=== PATIENT | female | born 1945 | race Caucasian/White ===

== ENCOUNTER → 2018-07-09 | Outpatient (CLI) | payer MEDICARE, OTHER ==
[~2018-07-09] MED LIST: ADDERALL 20 MG20 MG PO; ALBUTEROL0.63 MG/3 INH; ATENOLOL25 MG PO; CITALOPRAM HBR20 MG PO; FAMOTIDINE20 MG PO; FERROUS SULFAT325 MG PO; FLECTOR1 EACH TOP; FOLIC ACID1 MG PO; FUROSEMIDE40 MG PO; GABAPENTIN300 MG PO; GABAPENTIN600 MG PO; HYDROCHLOROTHIA50 MG PO; HYDROCODON-ACE1 EA12 PO; METFORMIN HCL1000 MG PO; METHYLPHENIDATE20 M1 PO; NAPROXEN500 MG PO; NOVOLIN N100 UNIT/1 SQ; PANTOPRAZOLE SO40 MG PO; PRAVASTATIN SOD80 MG PO; PROAIR HFA INH8.5 GM IH; PROPAFENONE HC325 MG PO; ROPINIROLE HCL0.5 MG PO; ROPINIROLE HCL2 MG PO; VITAMIN B-121000 MCG PO; VITAMIN D35000 UNIT PO
--- NOTE | 2018-07-09 17:53 | Diagnostic Imaging Report ---
Exam: Right ankle 2 views History: Pain Comparison: None. Findings: No fracture or malalignment. Arthropathy of the midfoot. Dorsal and plantar calcaneal enthesophytes. Soft tissue swelling. Impression: No acute osseous abnormality Midfoot arthropathy. Signed by: Dr. Eric Tam M.D. on 07/09/2018 5:50 PM
--- NOTE | 2018-07-09 17:54 | Diagnostic Imaging Report ---
Exam: Right knee 3 views each History: Knee pain Comparison: None. Findings: No fracture or malalignment. Joint spaces preserved. Left quadriceps enthesophyte. Impression: No acute osseous abnormality No arthropathy Signed by: Dr. Eric Tam M.D. on 07/09/2018 5:51 PM
--- NOTE | 2018-07-09 17:57 | Diagnostic Imaging Report ---
Exam: Right and left hand 2 views each History: Pain Comparison: None. Findings: No fracture or malalignment. Multifocal arthrosis of the hand most prominent involving the joints. Additional joints and first carpometacarpal No abnormal soft tissue calcification or soft tissue defect. 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 Signed by: Dr. Eric Tam M.D. on 07/09/2018 5:53 PM
== END ==
LOC: RAD 16:40
DX: M79.642 Pain in left hand (principal); M79.641 Pain in right hand; M25.562 Pain in left knee; M25.561 Pain in right knee; M25.572 Pain in left ankle and joints of left foot; M25.571 Pain in right ankle and joints of right foot

== ENCOUNTER → 2018-12-12 | Day surgery (SDC) | payer MEDICARE, OTHER ==
[~2018-12-12] MED LIST changes: +BETA CAROT25000 UNIT; +FENTANYL CITRATE/PF 100MCG/2 ML INJ ONE; +HYOSCYAMINE SULFATE 0.5 MG/ML INJ ONE; +MIDAZOLAM HCL 2 MG/2 ML VIAL ONE; +PROPOFOL IV EMULSION 10 MG/ML 50 ML VIAL ONE; +PROTONIX40 MG/ML; +VENTOLIN HFA18 GM
--- OUTSIDE RECORDS SUMMARY | 2018-12-12 09:02 | XMS REPORT ---
Author Author [facility] Address Unknown Phone Unavailable Care Team Providers Care Cook Helper Name Role Phone Zaida VELASQUEZ (NON STAFF) ANEL Unavailable Unavailable Darek MCCLAIN Unavailable Unavailable ARNEL PRADO Unavailable Unavailable Problems This patient has no known problems. Allergies, Adverse Reactions, Alerts This patient has no known allergies or adverse reactions. Medications This patient has no known medications. Results Test Description Test Time Test Comments Text Results Atomic Results Result Comments HAND LEFT 2 VIEWS 2018-07-09 17:51:00 [place] [address] Patient Name: YULI PINK MR #: [id number] : 1945 Age/Sex: 73/F Req #: [id number] Adm Physician: Ordered by: ANEL VELASQUEZ Report #: [id number] Location: [facility] Room/Bed: Procedure: [id number] DX/HAND LEFT 2 VIEWS Exam Date: Exam Time: REPORT STATUS: Signed Exam: Right and left hand 2 views each History: Pain Comparison: None. Findings: No fracture or malalignment. Multifocal arthrosis of the hand most prominent involving the joints. Additional joints and first carpometacarpal No abnormal soft tissue calcification or soft tissue defect. 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 Signed by: Dr. Eduin Saenz M.D. on 07/09/2018 5:53 PM Dictated By: EDUIN SAENZ MD 52 Transcribed By: SHARDA on 07/09/181752 COPY TO: ANEL VELASQUEZ (NON STAFF) HAND RIGHT 2 VIEWS 2018-07-09 17:51:00 [place] [address] Patient Name: YULI PINK MR #: [id number] : 1945 Age/Sex: 73/F Req #: [id number] Adm Physician: Ordered by: ANEL VELASQUEZ Report #: [id number] Location: [facility] Room/Bed: Procedure: [id number] DX/HAND RIGHT 2 VIEWS Exam Date: Exam Time: REPORT STATUS: Signed Exam: Right and left hand 2 views each History: Pain Comparison: None. Findings: No fracture or malalignment. Multifocal arthrosis of the hand most prominent involving the joints. Additional joints and first carpometacarpal No abnormal soft tissue calcification or soft tissue defect. 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 Signed by: Dr. Eduin Saenz M.D. on 07/09/2018 5:53 PM Dictated By: EDUIN SAENZ MD 52 Transcribed By: SHARDA on 07/09/181752 COPY TO: ANEL VELASQUEZ (NON STAFF) KNEE THREE VIEWS BILATERAL 2018-07-09 17:50:00 [facility] [address] [place] [address] Patient Name: YULI PINK MR #: [id number] : 1945 Age/Sex: 73/F Req #: [id number] Adm Physician: Ordered by: ANEL VELASQUEZ Report #: [id number] Location: RAD Room/Bed: Procedure: [id number] DX/KNEE THREE VIEWS BILATERAL Exam Date: Exam Time: REPORT STATUS: Signed Exam: Right knee 3 views each History: Knee pain Comparison: None. Findings: No fracture or malalignment. Joint spaces preserved. Left quadriceps enthesophyte. Impression: No acute osseous abnormality No arthropathy Signed by: Dr. Eduin Saenz M.D. on 07/09/2018 5:51 PM Dictated By: EDUIN SAENZ MD 50 Transcribed By: SHARDA on 07/09/181750 COPY TO: ANEL VELASQUEZ (NON STAFF) ANKLE 3 + VIEWS RIGHT 2018-07-09 17:49:00 [place] [address] Patient Name: YULI PINK MR #: [id number] : 1945 Age/Sex: 73/F Req #: [id number] Adm Physician: Ordered by: ANEL VELASQUEZ Report #: [id number] Location: RAD Room/Bed: Procedure: [id number] DX/ANKLE 3 + VIEWS RIGHT Exam Date: Exam Time: REPORT STATUS: Signed Exam: Right ankle 2 views History: Pain Comparison: None. Findings: No fracture or malalignment. Arthropathy of the midfoot. Dorsal and plantar calcaneal enthesophytes. Soft tissue swelling. Impression: No acute osseous abnormality Midfoot arthropathy. Signed by: Dr. Eduin Saenz M.D. on 07/09/2018 5:50 PM Dictated By: EDUIN SAENZ MD 49 Transcribed By: SHARDA on 07/09/181749 COPY TO: ANEL VELASQUEZ (NON STAFF) CHEST SINGLE (PORTABLE) [place] [address] Patient Name: YULI PINK MR #: [id number] : 1945 Age/Sex: 72/F Req #: [id number] Adm Physician: ROSENDO MCCLAIN MD Ordered by: THERESA SOMMER MD Report #: [id number] Location: MED/SURG Room/Bed: [facility] Procedure: [id number] DX/CHEST SINGLE (PORTABLE) Exam Date: 09/03/17 Exam Time: 911 REPORT STATUS: Signed PROCEDURE: CHEST SINGLE (PORTABLE) COMPARISON: 09/01/2017. INDICATIONS: CHF, BIBASILAR ATELECTASIS, PNEUMONIA FINDINGS: Lungs are well-inflated. Interval improvement in patchy opacities relative to 09/01/2017. No new consolidation or effusion. Surgical clips along the left chest wall and axilla. Stable cardiomediastinal contour. No overt pulmonary edema. No acute osseous abnormality. CONCLUSION: Interval improvement in bilateral patchy airspace opacities relative to 09/01/2017. Dictated by: Wilberto Hooks M.D. on 09/03/2017 at 9:39 Electronically approved by: Wilberto Hooks M.D. on 09/03/2017 at 9:39 Dictated By: WILBERTO HOOKS MD 8 Transcribed By: TOÑA on 09/03/17938 COPY TO: THERESA SOMMER MD CHEST 2 VIEWS [place] [address] Patient Name: YULI PINK MR #: [id number] : 1945 Age/Sex: 72/F Req #: [id number] Adm Physician: ROSENDO MCCLAIN MD Ordered by: THERESA SOMMER MD Report #: [id number] Location: MED/SURG Room/Bed: [facility] Procedure: [id number] DX/CHEST 2 VIEWS Exam Date: 09/01/17 Exam Time: 1300 REPORT STATUS: Signed EXAM: XR CHEST 2 VIEWS DATE: 09/01/2017 10:24 AM INDICATION: Short of breath COMPARISON: 08/31/2017 FINDINGS: Lines and Tubes: ET tube, NG tube, right IJ catheter no longer seen. Heart and Mediastinum: No acute findings. Lungs and Pleura: Patchy opacities lung bases. Bones and Soft Tissues: No acute findings. IMPRESSION: 1. Removal support lines/tubes. 2. Patchy opacities could represent atelectasis or pneumonia. Signed by: Dr. Renard Ahumada MD on 09/01/2017 1:22 PM Dictated By: RENARD AHUMADA MD 21 Transcribed By: SHARDA on 09/01/171321 COPY TO: THERESA SOMMER MD CHEST SINGLE (PORTABLE) [place] [address] Patient Name: YULI PINK MR #: [id number] : 1945 Age/Sex: 72/F Req #: [id number] Adm Physician: ROSENDO MCCLAIN MD Ordered by: THERESA SOMMER MD Report #: [id number] Location: MED/SURG Room/Bed: [facility] Procedure: [id number] DX/CHEST SINGLE (PORTABLE) Exam Date: Exam Time: REPORT STATUS: Signed EXAMINATION: CHEST SINGLE (PORTABLE) INDICATION: CHF and right lower lobe pneumonia COMPARISON: 08/30/2017 FINDINGS: TUBES and LINES: Interval placement of endotracheal tube with tip 3 cm above the citlaly. NG tube is stable. Right IJ central line catheter is visualized with tip overlying the region of the mid SVC LUNGS: Lungs are not well inflated. There are bibasilar atelectasis. Confluent opacities in the lung bases with air bronchogram compatible with developing infection. Interlobular septi thickening present. Left lower lobe atelectasis PLEURA: Small left pleural effusion HEART AND MEDIASTINUM: Cardiac size is moderately enlarged. There are atherosclerotic calcifications within the aorta. BONES AND SOFT TISSUES: No acute osseous lesion. Soft tissues are unremarkable. UPPER ABDOMEN: No free air under the diaphragm. IMPRESSION: 1. Worsening interstitial edema. 2. Confluent opacities in the lung bases are compatible with atelectasis versus infection. 3. Cardiomegaly and small left pleural effusion Signed by: Dr. oRcky Giang M.D. on 08/31/2017 4:19 AM Dictated By: ROCKY JUAREZ MD 8 Transcribed By: SHARDA on 08/31/17418 COPY TO: THERESA SOMMER MD CHEST SINGLE (PORTABLE) [place] [address] Patient Name: YULI PINK MR #: [id number] : 1945 Age/Sex: 72/F Req #: [id number] Adm Physician: ROSENDO MCCLAIN MD Ordered by: THERESA SOMMER MD Report #: [id number] Location: ICU Room/Bed: [place] [address] Procedure: [id number] DX/CHEST SINGLE (PORTABLE) Exam Date: 08/30/17 Exam Time: 0400 REPORT STATUS: Signed SINGLE VIEW CHEST, August 30, 2017 Clinical History: Shortness of breath; congestive heart failure. Technique: Single, portable AP view chest. Comparison: None. Findings: See impression. Impression: 1. Interstitial pulmonary edema with cardiomegaly and trace bilateral pleural effusions. 2. Right lower lobe airspace opacity in keeping with any combination of edema, atelectasis and/or pneumonia 3. Nasogastric tube crossing the diaphragm 4. Intact skeleton. Left axillary surgical clips. This report was generated with voice-recognition technology. Errors in neurology technologist can occur. Please interpret accordingly and contact a radiologist if there are any questions regarding the report. Signed by: Dr. Lenny Clayton M.D. on 08/30/2017 7:02 AM Dictated By: LENNY CLAYTON MD 1 Transcribed By: SHARDA on 08/30/17701 COPY TO: THERESA SOMMER MD CHEST SINGLE (PORTABLE) [place] [address] Patient Name: YULI PINK MR #: [id number] : 1945 Age/Sex: 72/F Req #: [id number] Adm Physician: ROSENDO MCCLAIN MD Ordered by: THERESA SOMMER MD Report #: [id number] Location: ICU Room/Bed: ICU [facility] Procedure: [id number] DX/CHEST SINGLE (PORTABLE) Exam Date: 08/28/17 Exam Time: 1840 REPORT STATUS: Signed PROCEDURE: A single AP view of the chest. COMPARISON: [facility], DX, CHEST 2 VIEWS, 08/26/2017, 17:56. INDICATIONS: CHF FINDINGS: Lines/tubes: NG/orogastric tube extending below the diaphragm, however, distal tip not included likely within the gastric body laterally. Lungs: Bilateral suboptimal inflation. Mild prominence of the pulmonary vasculature b ilaterally. Pleura: There is no pleural effusion or pneumothorax. Heart and mediastinum: The cardiac silhouette is probably enlarged. Bones: No acute bony abnormality. Surgical clips in the left axillary region and lower left hemithorax. IMPRESSION: 1. Mild bilateral pulmonary venous congestion. Harper Garcia M.D. Dictated by: Harper Garcia M.D. on 08/28/2017 at 18:58 Electronically approved by: Harper Garcia M.D. on 08/28/2017 at 18:58 Dictated By: MARLEN GARCIA MD, MD 57 Transcribed By: TOÑA on 08/28/171857 COPY TO: THERESA SOMMER MD CHEST 2 VIEWS [place] [address] Patient Name: YULI PINK MR #: [id number] : 1945 Age/Sex: 72/F Req #: [id number] Adm Physician: Ordered by: ROSENDO MCCLAIN MD Report #: [id number] Location: OR Room/Bed: Procedure: [id number] DX/CHEST 2 VIEWS Exam Date: 08/26/17 Exam Time: 1814 REPORT STATUS: Signed PROCEDURE: CHEST 2 VIEWS TECHNIQUE: PA and lateral chest INDICATION: Preoperative evaluation for colon surgery COMPARISON: [facility], DX, CHEST 2 VIEWS, 03/13/2017, 15:11. FINDINGS: Lungs are clear and symmetrically inflated. No pleural effusions. The mediastinal contour and pulmonary vasculature. Surgical clips over the left hemithorax and axilla. Intact skeleton. CONCLUSION: No acute abnormality or interval change from February 2017. Dictated by: Lenny Clayton M.D. on 08/26/2017 at 18:33 Electronically approved by: Lenny Clayton M.D. on 08/26/2017 at 18:33 Dictated By: LENNY CLAYTON MD 32 Transcribed By: TOÑA on 08/26/171832 COPY TO: ROSENDO MCCLAIN MD CT ABDOMEN/PELVIS W [facility] [address] [place] [address] Patient Name: YULI PINK MR #: [id number] : 1945 Age/Sex: 72/F Req #: [id number] Adm Physician: Ordered by: ARNEL PRADO MD Report #: [id number] Location: CT Room/Bed: Procedure: [id number] CT/CT ABDOMEN/PELVIS W Exam Date: 07/29/17 Exam Time: 2004 REPORT STATUS: Signed EXAM: CT Abdomen and Pelvis WITH contrast INDICATION: Colon cancer COMPARISON: None. TECHNIQUE: Abdomen and Pelvis was scanned utilizing a multidetector helical scanner after administration of IV contrast. Coronal and sagittal reformations were obtained. IV CONTRAST: 100 mL Isovue- 370 COMPLICATIONS: None RADIATION DOSE: Total DLP:478 mGy*cm Estimated effective dose: (DLP x 0.015 x size factor) mSv CTDIvol has been reviewed. It is below the limits set by the Radiation Protocol Committee (RPC). FINDINGS: Abdomen: Lung Bases: Minimal atelectasis lung bases. Solid Organs: Mild decreased attenuation of the liver suggesting steatosis. Otherwise, liver, adrenals, kidneys, spleen, and pancreas are unremarkable except for single splenic granuloma. Upper GI Tract: Small hiatal hernia present. No small bowel obstructive changes. Vascularity: Moderate aortic vascular calcifications with no aneurysm. Lymph Nodes: 15 mm moshe hepatic lymph node coronal image 62. 10 mm lymph node and 8 mm lymph node coronal images 64 and 63 right lower quadrant mesentery. Several smaller lymph nodes and mild stranding present about the cecum and proximal ascending colon. 2 adjacent 7 mm lymph nodes right iliac chain axial image 47. Other: Postsurgical changes ventral abdominal wall. Small fat- containing umbilical hernia. Pelvis: Bladder: Unremarkable. Other: Uterus absent. Colon: Moderate colonic stool and lack of enteric contrast limits evaluation. Diverticulosis sigmoid colon. Mild stranding about cecum and ascending colon. No fluid collection. Bones: Advanced degenerative changes left hip with significant joint space loss and large subchondral cyst. L5-S1 degenerative disc changes. IMPRESSION: 1. Portable hepatic, right lower quadrant, and right iliac chain adenopathy. Given history, findings concerning for metastatic disease. PET/CT could be obtained for further evaluation. 2. Mild hepatic steatosis. 3. Moderate colonic stool. Diverticulosis. Signed by: Dr. Renard Ahumada MD on 07/30/2017 8:02 AM Dictated By: RENARD AHUMADA MD 1 Transcribed By: SHARDA on 07/30/17801 COPY TO: ARNEL PRADO MD
[2018-12-12 14:52] LABS: WBC,FECAL (FECAL LACTOFERRIN) POSITIVE (NEGATIVE)
[2018-12-12 15:00] VITALS: BP 103/53
--- NOTE | 2018-12-12 21:47 | Operative Report ---
DATE OF PROCEDURE: 12/12/2018 SURGEON: Haja Cao MD REFERRING PHYSICIAN: Leonid Sharp MD PROCEDURES: Esophagogastroduodenoscopy with biopsies, and colonoscopy with polypectomy and biopsies. INDICATION FOR EGD: Heartburn and indigestion. INDICATIONS FOR COLONOSCOPY: Surveillance colonoscopy, personal history of colon cancer, history of diarrhea. MEDICATIONS: The patient was done under MAC, please see anesthesiologist's note. PROCEDURE IN DETAIL: With the patient in left lateral decubitus position, flexible fiberoptic Olympus gastroscope was introduced into the esophagus under direct visualization without any difficulty. There was some patchy erythema noted in the distal esophagus. The scope was then advanced with ease into the stomach, mucosa overlying the antrum and the body revealed some patchy erythema and low-grade to moderate edema and biopsies were obtained and sent to stain for H pylori. The pylorus was of normal contour and shape, was intubated with ease and the scope was advanced all the way to the second portion of the duodenum. The scope was then withdrawn slowly and mucosa overlying the proximal second portion and duodenal bulb grossly appeared to be within normal limits. Biopsies were obtained to rule out sprue considering the patient's history of chronic diarrhea. The scope was then withdrawn back into the stomach and retroflexed and the mucosa overlying the fundus and cardia appeared to be within normal limits. The scope was then straightened out, it was subsequently withdrawn. The patient tolerated the procedure well. IMPRESSION: 1. Distal esophagitis. 2. Gastritis, biopsied. Biopsies sent to stain for H pylori. 3. Rule out sprue. PLAN: Follow up histology. Continue Protonix 40 mg one p.o. q.a.m. a.c. The patient was then turned around and after adequate lubrication of the anal canal, flexible fiberoptic Olympus colonoscope was inserted into the rectum with ease and advanced all the way to the ileocolic anastomosis. Anastomosis was patent. There was no evidence of recurrence. The scope was then withdrawn slowly and the mucosa overlying the left colon revealed some patchy mild inflammatory changes and multiple random biopsies were obtained. One polyp was hot biopsied from the descending colon. Diverticular disease was noted to involve the descending and the sigmoid colon. One polyp was snared and two polyps were hot biopsied in the sigmoid colon. The mucosa just proximal to the dentate line appeared somewhat raised and biopsies were obtained. The scope was then retroflexed into the distal rectum and small internal hemorrhoids were noted, none of which was actively bleeding. The scope was then straightened out and was subsequently withdrawn after securing an adequate stool specimen that was sent for the appropriate stool studies. The patient tolerated the procedure well. IMPRESSION: 1. Ileocolic anastomosis, intact. No evidence of recurrence. 2. Diverticulosis. 3. Mild patchy colitis. 4. Descending colon polyp, hot biopsied. 5. Sigmoid colon polyps x3, 1 snared and 2 hot biopsied. 6. Distal rectal mucosa just proximal to the dentate line is somewhat raised and biopsies were obtained. 7. Internal hemorrhoids, none actively bleeding. PLAN: Follow up histology. Follow up stool studies. Initiate Bentyl 10 mg one p.o. t.i.d. VSL #3 one p.o. daily. The patient might need a followup colonoscopy in 2 to 3 years. Haja Cao MD [facility] /[id number] cc: Leonid Sharp MD
[2018-12-13 15:18] LABS: C DIFFICILE TOXIN A&B AMP PROB NEGATIVE (NEGATIVE)
== END | disposition home or self-care (01) ==
LOC: OR 08:59
PROVIDERS: ATTEND Internal Medicine Gastroenterology
DX: K29.70 Gastritis, unspecified, without bleeding (principal); Z85.038 Personal history of other malignant neoplasm of large intestine; K63.5 Polyp of colon; K62.1 Rectal polyp; K52.9 Noninfective gastroenteritis and colitis, unspecified; K20.9 Esophagitis, unspecified; K29.80 Duodenitis without bleeding; Z98.0 Intestinal bypass and anastomosis status; K57.30 Diverticulosis of large intestine without perforation or abscess without bleeding; K21.9 Gastro-esophageal reflux disease without esophagitis; K64.8 Other hemorrhoids; G62.9 Polyneuropathy, unspecified; G25.81 Restless legs syndrome; J45.909 Unspecified asthma, uncomplicated; G47.33 Obstructive sleep apnea (adult) (pediatric); I10 Essential (primary) hypertension; E11.9 Type 2 diabetes mellitus without complications; M81.0 Age-related osteoporosis without current pathological fracture; F32.9 Major depressive disorder, single episode, unspecified; Z91.048 Other nonmedicinal substance allergy status; Z01.810 Encounter for preprocedural cardiovascular examination; Z79.84 Long term (current) use of oral hypoglycemic drugs; Z85.3 Personal history of malignant neoplasm of breast
CPT/HCPCS: 36415; 43239; 45380; 45384; 45385; 82948; 83630; 83993; 87045; 87177; 87328; 87493; 88305; 88312; 93005; J1980; J2250; J2704

== ENCOUNTER 2020-02-17 06:41 | Observation (INO) | payer MEDICARE, OTHER ==
[2020-02-12 14:54] LABS: BASOPHILS # (AUTO) 0.1 (0.0-0.1); BASOPHILS % 0.6 % (0.0-1.0); EOSINOPHILS # (AUTO) 0.3 (0.0-0.4); EOSINOPHILS % 3.3 % (0.0-6.0); HEMATOCRIT 46.6 % (34.2-44.1); HEMOGLOBIN 14.3 g/dL (12.0-16.0); LYMPHOCYTES # (AUTO) 1.4 (1.0-3.2); LYMPHOCYTES % 16.8 % (18.0-39.1); MEAN CORPUSCULAR HEMOGLOBIN 30.1 pg (28-32); MEAN CORPUSCULAR HGB CONC 30.7 g/dL (31-35); MEAN CORPUSCULAR VOLUME 98.1 fL (81-99); MONOCYTES # (AUTO) 0.6 (0.2-0.8); MONOCYTES % 7.6 % (4.4-11.3); NEUTROPHILS % 71.5 % (38.7-80.0); PLATELET COUNT 258 x10e3/uL (140-360); RED BLOOD COUNT 4.75 x10e6/uL (3.6-5.1); RED CELL DISTRIBUTION WIDTH 13.6 % (11.7-14.4)
[2020-02-12 15:14] LABS: ANION GAP 15.1 mmol/L (8-16); CREATININE, SERUM 1.04 mg/dL (0.57-1.11); POTASSIUM 4.1 mmol/L (3.5-5.1)
--- NOTE | 2020-02-12 15:21 | Diagnostic Imaging Report ---
EXAMINATION: CHEST 2 VIEWS INDICATION: Pre-operative COMPARISON: Chest radiograph 09/01/2017 FINDINGS: LINES/TUBES:EKG leads overlie the chest. LUNGS:The lungs are mildly hyperinflated. No focal consolidation or pulmonary edema. Bibasilar subsegmental atelectasis. Ovoid density projecting over the left lateral lung base appears unchanged from 2017. PLEURA:No pleural effusion or pneumothorax. MEDIASTINUM:The cardiomediastinal silhouette appears normal in size and shape. Cardiomediastinal silhouette is stably enlarged. Bill chest BONES/SOFT TISSUES:No acute osseous injury. ABDOMEN:No free air under the diaphragm. IMPRESSION: Bibasilar subsegmental atelectasis. No focal pneumonia or pulmonary edema. Signed by: Ibeth Power MD on 02/12/2020 3:17 PM
[~2020-02-17] VITALS: Ht 160 cm; Wt 68.0 kg
[~2020-02-17 06:41] MED LIST changes: +ARMODAFINIL150 MG PO; +DICYCLOMINE HCL10 MG PO; -FENTANYL CITRATE/PF 100MCG/2 ML INJ ONE; -HYOSCYAMINE SULFATE 0.5 MG/ML INJ ONE; -MIDAZOLAM HCL 2 MG/2 ML VIAL ONE; +NOVOLIN N100 UNIT/4 SC; -PROPOFOL IV EMULSION 10 MG/ML 50 ML VIAL ONE; +PROTONIX20 MG PO
[2020-02-17] MEDS ORDERED: BUPIVACAINE 0.25% 30ML SDV INJ ONE (08:29)
[2020-02-17] MEDS ORDERED: HYDROMORPHONE 1MG/1ML INJ IV PRN (12:00)
[2020-02-17] MEDS ORDERED: ONDANSETRON HCL INJ 2MG/ML 2ML 2 MG/ML VIAL IV PRN (12:00)
[2020-02-17] MEDS ORDERED: ALBUTEROL SULFATE HFA 8GM INHALATION AEROSOL INH PRN (12:00)
[2020-02-17] MEDS ORDERED: HYDROCODONE/APAP 7.5MG-325MG 1 EA TAB PO PRN (12:00)
[2020-02-17] MEDS: INSULIN REGULAR, HUMAN 100 UNIT/1 ML 3ML VIAL SQ SCH ×2 (12:00→18:00)
--- NOTE | 2020-02-17 12:13 | Operative Report ---
DATE OF PROCEDURE: 02/17/2020 SURGEON: Yunier Pacheco MD PREOPERATIVE DIAGNOSIS: Incarcerated ventral hernia. POSTOPERATIVE DIAGNOSIS: Incarcerated ventral hernia. OPERATIONS PERFORMED: Exploratory laparotomy, lysis of adhesions, and repair of ventral hernia with mesh. BLACKJACK DEALER: CAMI Crow. ANESTHESIA: General. COMPLICATIONS: None. ESTIMATED BLOOD LOSS: Minimal. DESCRIPTION OF PROCEDURE: With the patient lying in bed in the supine position under good general endotracheal anesthesia, the abdomen was prepped with Betadine solution and draped in the usual manner. A midline periumbilical incision was made, carried down to the subcutaneous tissue and immediately, a hernia sac was encountered. The hernia sac was then slowly and carefully from all the surrounding structures. The umbilicus was then from the midline. The patient had a previous TRAM flap with a lipectomy, so there was lot of adhesions all throughout the abdominal wall. Once we freed up the fascia all the way around, the hernia sac was then slowly and carefully opened, contained within the hernia sac was a tightly adherent small bowel loops, which was slowly and carefully from each other and then we had to carry out intra-abdominal lysis of adhesions to be able to free up the small bowel from the undersurface of the fascia all the way around. This was slowly and carefully done, making sure that we did not injure the bowel and this took probably about an hour worth of work to be able to separate all the bowel and reduced it back to the intra-abdominal cavity. After this was done, hemostasis was ascertained. The fascial defect was then closed transversely using interrupted sutures of 0 Ethibond and was further oversewn with a running suture of #1 Vicryl. After this was done, Ultrapro mesh was then placed over the entire area and sutured all the way around with interrupted sutures of 0 Ethibond and 0 Vicryl. This gave us a satisfactory repair without any tension. The whole area was thoroughly irrigated and perfect hemostasis was ascertained. All layers were infiltrated on the way out with solution of 0.25% Marcaine. The umbilicus was then tacked back down to the midline fascia with 3-0 Vicryl. The subcutaneous tissue was approximated with 3-0 Vicryl and the skin was closed with clips. A dressing was applied. The sponge, lap, and needle count was correct. The patient tolerated the procedure well and returned to the recovery room in stable condition. MD RAKESH Prasad/DENA /[id number]
[2020-02-17] MEDS ORDERED: PROPAFENONE HCL SR 325 MG CAPCR PO SCH (14:00)
[2020-02-17] MEDS: FUROSEMIDE 40 MG TAB PO SCH (17:00)
[2020-02-17] MEDS ORDERED: SODIUM CHLORIDE 0.9% 1000ML 1,000 ML ONE (17:19)
[2020-02-17] MEDS ORDERED: CEFAZOLIN SOD 1 GM/NS 50ML 50 ML IV ONE (17:19)
[2020-02-17] MEDS: CEFAZOLIN SOD 1 GM/NS 50ML 50 ML IV SCH (17:29)
[2020-02-17] MEDS: SODIUM CHLORIDE 0.9% 1000ML 1,000 ML IV SCH ×2 (17:32→22:00)
[2020-02-17] MEDS: PANTOPRAZOLE 40 MG 10ML VIAL IV SCH (17:32)
[2020-02-17] MEDS ORDERED: PANTOPRAZOLE 40 MG 10ML VIAL ONE (17:37)
--- NOTE | 2020-02-17 18:15 | NUR ---
RECD FROM PACU S/P HERNIA REPAIR. DAUGHTER AT BEDSIDE. DRESSING TO ABD CDI. ABD BINDER IN PLACE. PATIENT SITTING UP IN BED EATING CL. LIQUID DIET FROM PACU. DENIES DISCOMFORT AT THIS TIME
[2020-02-17] MEDS ORDERED: DEXAMETHASONE SOD PHOS INJ 4 MG/ML VIAL ONE (18:32)
[2020-02-17] MEDS ORDERED: ACETAMINOPHEN 1000 MG/100 ML IV ONE (18:32)
[2020-02-17] MEDS ORDERED: ONDANSETRON HCL INJ 2MG/ML 2ML 2 MG/ML VIAL ONE (18:32)
[2020-02-17] MEDS ORDERED: GLYCOPYRROLATE INJ 0.2 MG/ML VIAL ONE (18:32)
[2020-02-17] MEDS ORDERED: SEVOFLURANE INHAL SOLN 250 ML PEN BTL ONE (18:32)
[2020-02-17] MEDS ORDERED: EPHEDRINE SULFATE INJ 50 MG/ML VIAL ONE (18:32)
[2020-02-17] MEDS ORDERED: CEFAZOLIN SOD 1 GM VIAL ONE (18:32)
[2020-02-17] MEDS ORDERED: ROCURONIUM BROMIDE 10 MG/ML 5ML VIAL IV ONE (18:32)
[2020-02-17] MEDS ORDERED: PROPOFOL IV EMULSION 10 MG/ML 20 ML VIAL ONE (18:32)
[2020-02-17] MEDS ORDERED: LIDOCAINE HCL 2% LOCAL INJ 5 ML SDV VIAL INJ ONE (18:32)
[2020-02-17] MEDS ORDERED: KETOROLAC TROMETHAMINE 30 MG/ML VIAL ONE (18:32)
[2020-02-17] MEDS ORDERED: NEOSTIGMINE 1 MG/ML 10ML VIAL ONE (18:32)
[2020-02-17] MEDS ORDERED: FENTANYL CITRATE/PF 100MCG/2 ML INJ ONE (18:39)
[2020-02-17 20:00] VITALS: BP 98/68
[2020-02-17] MEDS ORDERED: ACETAMINOPHEN 1000 MG/100 ML IV PRN (20:00)
--- NOTE | 2020-02-17 20:00 | NUR ---
LATE ENTRY--RECEIVED REPORT FROM 7AM NURSE, PATIENT CONTINUE RESTING, VITAL SIGNS TAKEN, 02 SATS IN THE 80's, INSTRUCTED PATIENT TO DO SOME DEEP BREATHING EXERCISES, AND 02 APPLIED PER 3L/NC, 02 SATS INCREASED TO 93%. DRESSING TO ABDOMEN REMAIN INTACT AND SECURED WITH BINDER, SCD REMAIN ON. WILL CONTINUE TO MONITOR. CALL LIGHT IN REACH.
[2020-02-17] MEDS ORDERED: ROPINIROLE HCL 2 MG TAB PO SCH (21:00)
[2020-02-17] MEDS: PROPAFENONE HCL 150 MG TAB PO SCH (22:28)
[2020-02-18] VITALS (9 sets, daily range): BP systolic 106–133; BP diastolic 53–68
--- NOTE | 2020-02-18 | NUR ---
LATE ENTRY--PATIENT AMBULATED TO THE RESTROOM WITH ASSISTANCE AND VOIDED. DRESSING AND BINDER REMAIN INTACT, POSITIONED BACK IN BED AND APPLIED O2 PER NC AT 3L. VITALS TAKEN. IV INFUSING, CALL LIGHT IN REACH. WILL CONTINUE TO MONITOR. ATTEMPTED SEVERAL TIMES TO OBTAIN MEDICAL HISTORY BUT PATIENT DRIFTED BACK TO SLEEP ONCE QUESTIONS WERE ASKED.
[2020-02-18] MEDS: INSULIN REGULAR, HUMAN 100 UNIT/1 ML 3ML VIAL SQ SCH ×4 (02:10→17:54)
[2020-02-18] MEDS: CEFAZOLIN SOD 1 GM/NS 50ML 50 ML IV SCH (03:11)
[2020-02-18 06:20] LABS: BASOPHILS % 0.3 % (0.0-1.0); EOSINOPHILS # (AUTO) 0.1 (0.0-0.4); EOSINOPHILS % 1.2 % (0.0-6.0); HEMATOCRIT 46.7 % (34.2-44.1); HEMOGLOBIN 14.2 g/dL (12.0-16.0); LYMPHOCYTES # (AUTO) 1.2 (1.0-3.2); LYMPHOCYTES % 16.6 % (18.0-39.1); MEAN CORPUSCULAR HEMOGLOBIN 30.5 pg (28-32); MEAN CORPUSCULAR HGB CONC 30.4 g/dL (31-35); MEAN CORPUSCULAR VOLUME 100.2 fL (81-99); MONOCYTES # (AUTO) 0.7 (0.2-0.8); MONOCYTES % 9.6 % (4.4-11.3); NEUTROPHILS # (AUTO) 5.3 (2.1-6.9); NEUTROPHILS % 71.9 % (38.7-80.0); PLATELET COUNT 219 x10e3/uL (140-360); RED BLOOD COUNT 4.66 x10e6/uL (3.6-5.1); RED CELL DISTRIBUTION WIDTH 13.2 % (11.7-14.4)
[2020-02-18 06:34] LABS: ANION GAP 13.3 mmol/L (8-16); CALCIUM 8.5 mg/dL (8.4-10.2); CREATININE, SERUM 0.94 mg/dL (0.57-1.11); POTASSIUM 4.3 mmol/L (3.5-5.1)
[2020-02-18] MEDS: PROPAFENONE HCL 150 MG TAB PO SCH ×2 (06:38→14:13)
--- NOTE | 2020-02-18 07:00 | NUR ---
LATE ENTRY--REPORT WAS GIVEN TO AM NURSE. PATIENT CONTINUE RESTING, NO COMPLAINTS OF PAIN VOICED.
--- OUTSIDE RECORDS SUMMARY | 2020-02-18 08:47 | XMS REPORT ---
Author Author [facility] Organization [facility] Address [address] [place] [address] Phone Unavailable Care Team Providers Care Systems Administrator Name Role Phone Darek MCCLAIN Attphys Unavailable Zaida VELASQUEZ (NON STAFF) ANEL Attphys Unavailable ARNEL PRADO Attphys Unavailable Darek MCCLAIN Admphys Unavailable Problems This patient has no known problems. Allergies, Adverse Reactions, Alerts This patient has no known allergies or adverse reactions. Medications This patient has no known medications. Procedures This patient has no known procedures. Results Test Description Test Time Test Comments Results Result Comments Source CHEST 2 VIEWS 2020-02-12 15:15:00 [place] [address] Patient Name: YULI PINK MR #: [id number] : 1945 Age/Sex: 74/F Req #: [id number] Adm Physician: Ordered by: ROSENDO MCCLAIN MD Report #: [id number] Location: OR Room/Bed: Procedure: [id number] DX/CHEST 2 VIEWS Exam Date: 02/12/20 Exam Time: 1500 REPORT STATUS: Signed EXAMINATION: CHEST 2 VIEWS INDICATION: Pre-operative COMPARISON: Chest radiograph 09/01/2017 FINDINGS: LINES/TUBES:EKG leads overlie the chest. LUNGS:The lungs are mildly hyperinflated. No focal consolidation or pulmonary edema. Bibasilar subsegmental atelectasis. Ovoid density projecting over the left lateral lung base appears unchanged from 2017. PLEURA:No pleural effusion or pneumothorax. MEDIASTINUM:The cardiomediastinal silhouette appears normal in size and shape. Cardiomediastinal silhouette is stably enlarged. Bill chest BONES/SOFT TISSUES:No acute osseous injury. ABDOMEN:No free air under the diaphragm. IMPRESSION: Bibasilar subsegmental atelectasis. No focal pneumonia or pulmonary edema. Signed by: Kristel Alcantar MD on 02/12/2020 3:17 PM Dictated By: KRISTEL ALCANTAR MD 16 Transcribed By: SHARDA on 02/12/201516 COPY TO: ROSENDO MCCLAIN MD HAND LEFT 2 VIEWS 2018-07-09 17:51:00 [place] [address] Patient Name: YULI PINK MR #: [id number] : 1945 Age/Sex: 73/F Req #: [id number] Adm Physician: Ordered by: ANEL VELASQUEZ Report #: [id number] Location: [facility] Room/Bed: Procedure: [id number] DX/HAND LEFT 2 VIEWS Exam Date: Exam [...] STAFF) HAND RIGHT 2 VIEWS 2018-07-09 17:51:00 [place] [address] Patient Name: YULI PINK MR #: [id number] : 1945 Age/Sex: 73/F Req #: [id number] Adm Physician: Ordered by: ANEL VELASQUEZ Report #: [id number] Location: [facility] Room/Bed: Procedure: [id number] DX/HAND RIGHT 2 VIEWS Exam Date: Exam [...] STAFF) KNEE THREE VIEWS BILATERAL 2018-07-09 17:50:00 [place] [address] Patient Name: YULI PINK MR #: [id number] : 1945 Age/Sex: 73/F Req #: [id number] Adm Physician: Ordered by: ANEL VELASQUEZ Report #: [id number] Location: RAD Room/Bed: Procedure: [id number] DX/KNEE THREE VIEWS BILATERAL Exam Date: Exam [...] ANKLE 3 + VIEWS RIGHT 2018-07-09 17:49:00 [place] [address] Patient Name: YULI PINK MR #: [id number] : 1945 Age/Sex: 73/F Req #: [id number] Adm Physician: Ordered by: ANEL VELASQUEZ Report #: [id number] Location: RAD Room/Bed: Procedure: [id number] DX/ANKLE 3 + VIEWS RIGHT Exam Date: [...] ANEL VELASQUEZ (NON STAFF) CHEST SINGLE (PORTABLE) [place] [address] Patient Name: YULI PINK MR #: [id number] : 1945 Age/Sex: 72/F Req #: [id number] Adm Physician: ROSENDO MCCLAIN MD Ordered by: THERESA SOMMER MD Report #: [id number] Location: MED/SURG Room/Bed: [facility] Procedure: [id number] DX/CHEST SINGLE (PORTABLE) Exam Date: 09/03/17 Exam Time: 0912 REPORT STATUS: Signed PROCEDURE: CHEST SINGLE (PORTABLE) [...] opacities relative to 09/01/2017. Dictated by: Wilberto Allan M.D. on 09/03/2017 at 9:39 Electronically approved by: Wilberto Allan M.D. on 09/03/2017 at 9:39 Dictated By: WILBERTO ALLAN MD 8 Transcribed By: TOÑA on 09/03/17938 COPY TO: THERESA SOMMER MD CHEST 2 VIEWS [place] [address] Patient Name: YULI PINK MR #: [id number] : 1945 Age/Sex: 72/F Req #: [id number] Adm Physician: ROSENDO MCCLAIN MD Ordered by: THERESA SOMMER MD Report #: [id number] Location: MED/SURG Room/Bed: [facility] Procedure: [id number] DX/CHEST 2 VIEWS Exam Date: 09/01/17 Exam [...] TO: THERESA SOMMER MD CHEST SINGLE (PORTABLE) [place] [address] Patient Name: YULI PINK MR #: [id number] : 1945 Age/Sex: 72/F Req #: [id number] Adm Physician: ROSENDO MCCLAIN MD Ordered by: THERESA SOMMER MD Report #: [id number] Location: MED/SURG Room/Bed: [facility] Procedure: [id number] DX/CHEST SINGLE (PORTABLE) Exam Date: Exam Time: [...] small left pleural effusion Signed by: Dr. Rocky Giang M.D. on 08/31/2017 4:19 AM Dictated By: ROCKY JUAREZ MD 8 Transcribed By: SHARDA on 08/31/17418 COPY TO: THERESA SOMMER MD CHEST SINGLE (PORTABLE) [place] [address] Patient Name: YULI PINK MR #: [id number] : 1945 Age/Sex: 72/F Req #: [id number] Adm Physician: ROSENDO MCCLAIN MD Ordered by: THERESA SOMMER MD Report #: [id number] Location: ICU Room/Bed: [place] [address] Procedure: [id number] DX/CHEST SINGLE (PORTABLE) Exam Date: 08/30/17 Exam [...] was generated with voice-recognition technology. Errors in bulk delivery driver can occur. Please interpret accordingly and contact a radiologist if there are any questions regarding the report. Signed by: Dr. Lenny Clayton M.D. on 08/30/2017 7:02 AM Dictated By: LENNY CLAYTON MD 1 Transcribed By: SHARDA on 08/30/17701 COPY TO: THERESA SOMMER MD CHEST SINGLE (PORTABLE) [place] [address] Patient Name: YULI PINK MR #: [id number] : 1945 Age/Sex: 72/F Req #: [id number] Adm Physician: ROSENDO MCCLAIN MD Ordered by: THERESA SOMMER MD Report #: [id number] Location: ICU Room/Bed: ICU [facility] Procedure: [id number] DX/CHEST SINGLE (PORTABLE) Exam Date: 08/28/17 Exam Time: 1840 REPORT STATUS: Signed PROCEDURE: A single AP view of the chest. COMPARISON: [facility], DX, CHEST 2 VIEWS, 08/26/2017, 17:56. INDICATIONS: [...] TO: THERESA SOMMER MD CHEST 2 VIEWS [place] [address] Patient Name: YULI PINK MR #: [id number] : 1945 Age/Sex: 72/F Req #: [id number] Adm Physician: Ordered by: ROSENDO MCCLAIN MD Report #: [id number] Location: OR Room/Bed: Procedure: [id number] DX/CHEST 2 VIEWS Exam Date: 08/26/17 Exam Time: 1814 REPORT STATUS: Signed PROCEDURE: CHEST 2 VIEWS TECHNIQUE: PA and lateral chest INDICATION: Preoperative evaluation for colon surgery COMPARISON: [facility], DX, CHEST 2 VIEWS, 03/13/2017, 15:11. FINDINGS: [...] TO: ROSENDO MCCLAIN MD CT ABDOMEN/PELVIS W [facility] [address] [place] [address] Patient Name: YULI PINK MR #: [id number] : 1945 Age/Sex: 72/F Req #: [id number] Adm Physician: Ordered by: ARNEL PRADO MD Report #: [id number] Location: CT Room/Bed: Procedure: [id number] CT/CT ABDOMEN/PELVIS W Exam Date: 07/29/17 Exam [...]
[2020-02-18] MEDS: FUROSEMIDE 40 MG TAB PO SCH ×2 (09:00→17:00)
[2020-02-18] MEDS ORDERED: ATENOLOL 50 MG TAB PO SCH (09:00)
[2020-02-18] MEDS ORDERED: NON-FORMULARY MEDICATION (Atenolol 25 MG) PO SCH (09:00)
[2020-02-18] MEDS ORDERED: ARMODAFINIL 150 MG TAB PO SCH (09:00)
[2020-02-18] MEDS: SODIUM CHLORIDE 0.9% 1000ML 1,000 ML IV SCH ×2 (09:05→17:52)
--- OUTSIDE RECORDS SUMMARY | 2020-02-18 10:12 | XMS REPORT ---
Author Author [facility] Organization [facility] Address [address] [place] [address] Phone Unavailable Care Team Providers Care Sample Finisher Name Role Phone Darek MCCLAIN Attphys Unavailable [...] Comments Source CHEST 2 VIEWS 2020-02-12 15:15:00 [place] [address] Patient Name: YULI PINK MR #: [id number] : 1945 Age/Sex: 74/F Req #: [id number] Adm Physician: Ordered by: ROSENDO MCCLAIN MD Report #: [id number] Location: OR Room/Bed: Procedure: [id number] DX/CHEST 2 VIEWS Exam Date: 02/12/20 Exam [...] MD HAND LEFT 2 VIEWS 2018-07-09 17:51:00 [place] [address] Patient Name: YULI PINK MR #: [id number] : 1945 Age/Sex: 73/F Req #: [id number] Adm Physician: Ordered by: ANEL VELASQUEZ Report #: [id number] Location: [facility] Room/Bed: Procedure: [id number] DX/HAND LEFT 2 VIEWS Exam Date: Exam [...] STAFF) HAND RIGHT 2 VIEWS 2018-07-09 17:51:00 [place] [address] Patient Name: YULI PINK MR #: [id number] : 1945 Age/Sex: 73/F Req #: [id number] Adm Physician: Ordered by: ANEL VELASQUEZ Report #: [id number] Location: [facility] Room/Bed: Procedure: [id number] DX/HAND RIGHT 2 VIEWS Exam Date: Exam [...] STAFF) KNEE THREE VIEWS BILATERAL 2018-07-09 17:50:00 [place] [address] Patient Name: YULI PINK MR #: [id number] : 1945 Age/Sex: 73/F Req #: [id number] Adm Physician: Ordered by: ANEL VELASQUEZ Report #: [id number] Location: RAD Room/Bed: Procedure: [id number] DX/KNEE THREE VIEWS BILATERAL Exam Date: Exam [...] ANKLE 3 + VIEWS RIGHT 2018-07-09 17:49:00 [place] [address] Patient Name: YULI PINK MR #: [id number] : 1945 Age/Sex: 73/F Req #: [id number] Adm Physician: Ordered by: ANEL VELASQUEZ Report #: [id number] Location: RAD Room/Bed: Procedure: [id number] DX/ANKLE 3 + VIEWS RIGHT Exam Date: [...] ANEL VELASQUEZ (NON STAFF) CHEST SINGLE (PORTABLE) [place] [address] Patient Name: YULI PINK MR #: [id number] : 1945 Age/Sex: 72/F Req #: [id number] Adm Physician: ROSENDO MCCLAIN MD Ordered by: THERESA SOMMER MD Report #: [id number] Location: MED/SURG Room/Bed: [facility] Procedure: [id number] DX/CHEST SINGLE (PORTABLE) Exam Date: 09/03/17 Exam [...] TO: THERESA SOMMER MD CHEST 2 VIEWS [place] [address] Patient Name: YULI PINK MR #: [id number] : 1945 Age/Sex: 72/F Req #: [id number] Adm Physician: ROSENDO MCCLAIN MD Ordered by: THERESA SOMMER MD Report #: [id number] Location: MED/SURG Room/Bed: [facility] Procedure: [id number] DX/CHEST 2 VIEWS Exam Date: 09/01/17 Exam [...] TO: THERESA SOMMER MD CHEST SINGLE (PORTABLE) [place] [address] Patient Name: YULI PINK MR #: [id number] : 1945 Age/Sex: 72/F Req #: [id number] Adm Physician: ROSENDO MCCLAIN MD Ordered by: THERESA SOMMER MD Report #: [id number] Location: MED/SURG Room/Bed: [facility] Procedure: [id number] DX/CHEST SINGLE (PORTABLE) Exam Date: Exam Time: [...] small left pleural effusion Signed by: Dr. Rokcy Giang M.D. on 08/31/2017 4:19 AM Dictated By: ROCKY JUAREZ MD 8 Transcribed By: SHARDA on 08/31/17418 COPY TO: THERESA SOMMER MD CHEST SINGLE (PORTABLE) [place] [address] Patient Name: YULI PINK MR #: [id number] : 1945 Age/Sex: 72/F Req #: [id number] Adm Physician: ROSENDO MCCLAIN MD Ordered by: THERESA SOMMER MD Report #: [id number] Location: ICU Room/Bed: [place] [address] Procedure: [id number] DX/CHEST SINGLE (PORTABLE) Exam Date: 08/30/17 Exam [...] was generated with voice-recognition technology. Errors in tilesetter can occur. Please interpret accordingly and contact a radiologist if there are any questions regarding the report. Signed by: Dr. Lenny Clayton M.D. on 08/30/2017 7:02 AM Dictated By: LENNY CLAYTON MD 1 Transcribed By: SHARDA on 08/30/17701 COPY TO: THERESA SOMMER MD CHEST SINGLE (PORTABLE) [place] [address] Patient Name: YULI PINK MR #: [id number] : 1945 Age/Sex: 72/F Req #: [id number] Adm Physician: ROSENDO MCCLAIN MD Ordered by: THERESA SOMMER MD Report #: [id number] Location: ICU Room/Bed: ICU [facility] Procedure: [id number] DX/CHEST SINGLE (PORTABLE) Exam Date: 08/28/17 Exam Time: 1840 REPORT STATUS: Signed PROCEDURE: A single AP view of the chest. COMPARISON: [facility], DX, CHEST 2 VIEWS, 08/26/2017, 17:56. INDICATIONS: [...] TO: THERESA SOMMER MD CHEST 2 VIEWS [place] [address] Patient Name: YULI PINK MR #: [id number] : 1945 Age/Sex: 72/F Req #: [id number] Adm Physician: Ordered by: ROSENDO MCCLAIN MD Report #: [id number] Location: OR Room/Bed: Procedure: [id number] DX/CHEST 2 VIEWS Exam Date: 08/26/17 Exam Time: 1814 REPORT STATUS: Signed PROCEDURE: CHEST 2 VIEWS TECHNIQUE: PA and lateral chest INDICATION: Preoperative evaluation for colon surgery COMPARISON: [facility], DX, CHEST 2 VIEWS, 03/13/2017, 15:11. FINDINGS: [...] TO: ROSENDO MCCLAIN MD CT ABDOMEN/PELVIS W [facility] [address] [place] [address] Patient Name: YULI PINK MR #: [id number] : 1945 Age/Sex: 72/F Req #: [id number] Adm Physician: Ordered by: ARNEL PRADO MD Report #: [id number] Location: CT Room/Bed: Procedure: [id number] CT/CT ABDOMEN/PELVIS W Exam Date: 07/29/17 Exam [...]
--- NOTE | 2020-02-18 10:30 | NUR ---
Pt sleeping soundly and no family present. Student Teacher left a card describing availability of roving technician and instructions on how to contact a roving technician. RAMIRO FIGUEROA Student Teacher Spiritual Care Department O: [phone]
[2020-02-18] MEDS ORDERED: ACETAMINOPHEN 325 MG TAB PO PRN (13:00)
[2020-02-18] MEDS: PANTOPRAZOLE 40 MG 10ML VIAL IV SCH (17:52)
--- NOTE | 2020-02-18 21:15 | NUR ---
PATIENT WAS DISCHARGED ORDERED. PATIENT BEGAN TO HAVE SOB UPON EXERTION TO GO TO RESTROOM, SATURATION WAS CHECKED AND WAS AT 82%. PATIENT VOICED THAT SHE HAS COPD AND DAUGHTER CONFIRMED. O2 SATURATION WAS RECHECKED WITHOUT NASAL CANNULA AT REST AND RISEN TO 96%, NO SIGNS OF DISTRESS NOTED. PATIENT AND DAUGHTER EDUCATED TO FOLLOW UP WITH COPD.
--- NOTE | 2020-02-19 04:00 | NUR ---
LATE ENTRY--CONTINUE RESTING, MEDICATED EARLIER FOR COMPLAINT OF PAIN. WILL CONTINUE TO MONITOR.
[2020-02-19] MEDS ORDERED: ARMODAFINIL 150 MG TAB PO SCH (09:00)
== END 2020-02-18 21:27 | disposition home or self-care (01) ==
LOC: OR 06:41 → PACU V 11:49 → MED/SURG 18:19
PROVIDERS: ADMIT Surgery; ATTEND Surgery
DX: K43.6 Other and unspecified ventral hernia with obstruction, without gangrene (principal); Z01.812 Encounter for preprocedural laboratory examination; Z01.810 Encounter for preprocedural cardiovascular examination; Z01.818 Encounter for other preprocedural examination; Z11.59 Encounter for screening for other viral diseases; Z91.048 Other nonmedicinal substance allergy status; E11.9 Type 2 diabetes mellitus without complications; G47.33 Obstructive sleep apnea (adult) (pediatric); J45.909 Unspecified asthma, uncomplicated; I10 Essential (primary) hypertension; E78.5 Hyperlipidemia, unspecified; E66.9 Obesity, unspecified; Z68.26 Body mass index [BMI] 26.0-26.9, adult
CPT/HCPCS: 36415 ×3; 49561; 49568; 71046; 80048 ×2; 82948 ×2; 85025 ×2; 87635; 93005; C1781; C9113 ×2; G0378 ×2; J0131; J0690 ×3; J1100; J1885; J2001; J2405; J2704; J2710; J3010; J7030 ×2